=== PATIENT | female | born 1950 | race Hispanic/Latino ===

== ENCOUNTER 2017-04-27 15:24 | Inpatient (IN) | payer MEDICARE ==
--- NOTE | 2017-04-27 16:12 | ED PDOC ---
HPI: Psych/Substance Abuse Time Seen by Provider: 04/27/17 15:33 Chief Complaint (Nursing): Psychiatric Evaluation Chief Complaint (Provider): Psychiatric Evaluation History Per: Patient History/Exam Limitations: no limitations Onset/Duration Of Symptoms: Persistent (x1 month) Current Symptoms Are (Timing): Still Present Additional Complaint(s): 66 year old female with medical history of schizoaffective disorder, presents to the emergency department with a complaint of auditory hallucinations ongoing for 1 month, stating "they are out to get her". She denied any suicidal or homicidal ideation. Patient was seen at [facility] with full work-up earlier today for similar symptoms and advised to follow up with outpatient counseling upon discharge. PMD: none provided Past Medical History Reviewed: Historical Data, Nursing Documentation, Vital Signs Vital Signs: Last Vital Signs Temp 98.3 F 04/27/17 15:28 Pulse 82 04/27/17 15:28 Resp 18 04/27/17 15:28 BP 129/84 04/27/17 15:28 Pulse Ox 99 04/27/17 15:28 - Medical History PMH: Anxiety, Cardia Arrhythmia, COPD, Depression, Schizophrenia, Seizures ( EPILEPSY) Denies: Diabetes, Hepatitis, HIV, HTN, Chronic Kidney Disease, Sexually Transmitted Disease - Surgical History Surgical History: Appendectomy - Family History Family History: States: Unknown Family Hx - Social History Current smoker - smoking cessation education provided: Yes Alcohol: None Drugs: Denies - Immunization History Hx Tetanus Toxoid Vaccination: No Hx Influenza Vaccination: Yes Hx Pneumococcal Vaccination: No - Home Medications Home Medications: Ambulatory Orders Medication Instructions Recorded risperiDONE [RisperDAL Tab] 2 mg PO DAILY 04/17/17 Digoxin [Lanoxin] 0.25 mg PO DAILY@1800 #30 tab 04/22/17 Venlafaxine [Effexor XR] 150 mg PO DAILY #30 cer 04/22/17 risperiDONE [RisperDAL Tab] 3 mg PO HS #30 tab 04/22/17 DiphenhydrAMINE [Benadryl] 25 mg PO Q12 04/27/17 Phenytoin, Extended [Dilantin] 100 mg PO Q8 04/27/17 Venlafaxine [Effexor XR] 75 mg PO DAILY@1300 04/27/17 traZODone [Desyrel] 150 mg PO HS 04/27/17 - Allergies Allergies/Adverse Reactions: Allergies Allergy/AdvReac Type Severity Reaction Status Date / Time No Known Allergies Allergy Verified 04/27/17 06:54 Review of Systems ROS Statement: Except As Marked, All Systems Reviewed And Found Negative Neurological: Positive for: Other (auditory hallucination) Psych: Negative for: Suicidal ideation (or homicidal ideation) Physical Exam - Reviewed Nursing Documentation Reviewed: Yes Vital Signs Reviewed: Yes - Physical Exam Appears: Positive for: Non-toxic, No Acute Distress Head Exam: Positive for: ATRAUMATIC, NORMAL INSPECTION, NORMOCEPHALIC Skin: Positive for: Normal Color Eye Exam: Positive for: Normal appearance ENT: Positive for: Normal ENT Inspection Neck: Positive for: Normal Cardiovascular/Chest: Positive for: Chest Non Tender Respiratory: Positive for: Normal Breath Sounds. Negative for: Decreased Breath Sounds, Wheezing, Respiratory Distress Neurologic/Psych: Positive for: Alert (x3), Oriented, Mood/Affect (Paranoid ), Gait. Negative for: Motor/Sensory Deficits - ECG O2 Sat by Pulse Oximetry: 99 (RA) Pulse Ox Interpretation: Normal Medical Decision Making Medical Decision Making: Initial Impression: Crisis Evaluation Initial Plan: * Crisis evaluation Time: 1545 --Labs performed at [facility] reviewed by provider: no significant abnormalities. CXR in ER normal. EKG seen by FAUSTINO Hollis Scribe Attestation: Documented by Sandra Choi, acting as a scribe for La Frazier PA-C. Provider Scribe Attestation: All medical record entries made by the Scribe were at my direction and personally dictated by me. I have reviewed the chart and agree that the record accurately reflects my personal performance of the history, physical exam, medical decision making, and the department course for this patient. I have also personally directed, reviewed, and agree with the discharge instructions and disposition. Disposition - Clinical Impression Clinical Impression: Schizophrenia - Patient ED Disposition Is Patient to be Admitted: No Counseled Patient/Family Regarding: Diagnosis, Need For Followup - Disposition Disposition: Routine/Home Disposition Time: 18:21 Condition: GOOD - Pt Status Changed To: Hospital Disposition Of: Inpatient - Admit Certification Admit to Inpatient:: After my assessment, the patient will require hospitalization for at least two midnights. This is because of the severity of symptoms shown, intensity of services needed, and/or the medical risk in this patient being treated as an outpatient. - POA Present On Arrival: None
--- NOTE | 2017-04-27 18:18 | RAD ---
HISTORY: admission to psychiatric unit COMPARISON: No prior. FINDINGS: LUNGS: Hyperinflation/manifestations of COPD. Innumerable subcentimeter calcified granuloma. PLEURA: No significant pleural effusion identified, no pneumothorax apparent. CARDIOVASCULAR: No radiographic findings to suggest acute or significant cardiovascular disease. OSSEOUS STRUCTURES: No significant abnormalities. VISUALIZED UPPER ABDOMEN: Normal. OTHER FINDINGS: None. IMPRESSION: No active disease.
[2017-04-27 18:31] VITALS: O2SAT 98
[2017-04-27 18:51] VITALS: BMI 14.6
[2017-04-27] MEDS ORDERED: Bismuth Subsalicylate 262 mg/15 ml Sus (240 ml) PO PRN (20:09)
[2017-04-27] MEDS ORDERED: Magnesium Hydroxide Susp 30 ml UD PO PRN (20:09)
[2017-04-27] MEDS ORDERED: Alum-Mag Hydrox-Simethicone Susp (30 mL) PO PRN (20:09)
--- NOTE | 2017-04-27 20:25 | PCM.BM ---
Treatment Plan Problems - Problems identified on initial assessmt Auditory Hallucination Date Initiated: 04/27/17 Time Initiated: 20:24 Assessment reference: NA Status: Active Treatment assets and liabiliti Patient Assests: adapts well, cooperative, ADL independent, good support system , negotiates basic needs, good past tx response Patient Liabilities: medical problems - Milieu Protocol Maintain good personal hygiene: daily Encourage regular showers, daily Remind patient to perform daily oral care, other Assist patient to perform ADL's (prn) Conduct patient checks and document Observation sheet: Q15 minutes Maintain personal safety: every shift Educate patient to report safety concerns to staff, every shift Monitor environment for contraband/sharps Medication safety: Monitor for expected outcome, potential side effects: every shift, Assess barriers to learning: every shift, Assess readiness for medication education: every shift
[2017-04-27] MEDS ORDERED: Digoxin 250 mcg (0.25 mg) Tab PO ONE (21:28)
[2017-04-28 07:13] LABS: IRON 131 ug/dL (37-170)
[2017-04-28 07:24] LABS: % IRON SATURATION 50 % (20-55); TOTAL IRON BINDING CAPACITY 262 ug/dL (250-450)
[2017-04-28 08:13] LABS: T4 7.13 ug/dl (5.5-11.0)
[2017-04-28] MEDS: Venlafaxine 150 mg ER Cap PO SCH (09:06)
--- NOTE | 2017-04-28 11:04 | CARD ---
APPROVED REPORT EKG Measurement Heart [id number] <Conclusion> Sinus tachycardia with premature atrial complexes and premature ventricular complexes or fusion complexes Otherwise normal ECG
[2017-04-28] MEDS: Venlafaxine 75 mg ER Cap PO SCH (13:13)
[2017-04-28 16:44] LABS: FOLATE 19.7 ng/mL
[2017-04-28] MEDS: Digoxin 250 mcg (0.25 mg) Tab PO SCH (17:14)
--- NOTE | 2017-04-28 17:18 | PCM.PSYCH ---
Initial Psychiatric Evaluation - Initial Psychiatric Evaluation Chief Complaint (in patient's own words): i was home these people are trying to get me Patient's Reaction to Hospitalization: pt presented er complaining of anxiety hearing voices, feeling like people are out to get me. pt reportedly was at home was seen earlier in day at [facility] for similar complaints. pt reports when gets nervous has trouble with remembering to take medication. History of Present Illness and Precipitating Events: history of schizoaffective disorder with delusions hx of intermittent adherence at home. previously treated in the community. Current Medications: Active Medications Generic Name Dose Route Start Last Admin Trade Name Freq PRN Reason Stop Dose Admin Acetaminophen 650 mg 04/27/17 20:09 Tylenol 325mg Tab PO Q4 PRN Pain, moderate (4-7) Al Hydrox/Mg Hydrox/Simethicone 30 ml 04/27/17 20:09 Maalox Plus 30 Ml PO Q4 PRN Dyspepsia Bismuth Subsalicylate 524 mg 04/27/17 20:09 Pepto-Bismol PO Q4 PRN Diarrhea Digoxin 0.25 mg 04/28/17 18:00 Lanoxin PO DAILY@1800 MARTINEZ Diphenhydramine HCl 25 mg 04/27/17 21:00 04/28/17 09:05 Benadryl PO 25 mg Q12 MARTINEZ Administration Lorazepam 0.5 mg 04/27/17 20:09 Ativan PO 05/11/17 20:10 HS PRN Insomnia Lorazepam 0.5 mg 04/27/17 20:09 04/27/17 23:34 Ativan PO 05/11/17 20:10 0.5 mg Q6 PRN Administration Anixety/Agitation Magnesium Hydroxide 30 ml 04/27/17 20:09 Milk Of Magnesia PO HS PRN Constipation Phenytoin Sodium 100 mg 04/28/17 01:00 04/28/17 09:06 Dilantin PO 100 mg Q8 MARTINEZ Administration Risperidone 2 mg 04/28/17 09:00 04/28/17 09:06 Risperdal Tab PO 2 mg QAM MARTINEZ Administration Risperidone 3 mg 04/28/17 22:00 Risperdal Tab PO HS MARTINEZ Trazodone HCl 150 mg 04/27/17 22:00 04/27/17 21:27 Desyrel PO 150 mg HS MARTINEZ Administration Venlafaxine HCl 75 mg 04/28/17 13:00 04/28/17 13:13 Effexor Xr PO 75 mg DAILY@1300 MARTINEZ Administration Venlafaxine HCl 150 mg 04/28/17 09:00 04/28/17 09:06 Effexor Xr PO 150 mg DAILY MARTINEZ Administration Past Psychiatric History - Past Psychiatric History Prior Professional Help: past [facility] History of Abuse: denies History of ETOH/Drug Use: denies History of Family Illness: denies Pertinent Medical Hx (Current Medical&Sleep Prob, Allergies): Allergies Allergy/AdvReac Type Severity Reaction Status Date / Time No Known Allergies Allergy Verified 04/27/17 06:54 risperiDONE [RisperDAL Tab] 2 mg PO DAILY 04/17/17 Digoxin [Lanoxin] 0.25 mg PO DAILY@1800 #30 tab 04/22/17 Venlafaxine [Effexor XR] 150 mg PO DAILY #30 cer 04/22/17 risperiDONE [RisperDAL Tab] 3 mg PO HS #30 tab 04/22/17 DiphenhydrAMINE [Benadryl] 25 mg PO Q12 04/27/17 Phenytoin, Extended [Dilantin] 100 mg PO Q8 04/27/17 Risperidone [Risperdal] 2 mg PO QAM 04/27/17 Venlafaxine [Effexor XR] 75 mg PO DAILY@1300 04/27/17 traZODone [Desyrel] 150 mg PO HS 04/27/17 Review of Systems - Psychiatric Psychiatric: Abnormal Sleep Pattern, Anxiety, Paranoia Mental Status Examination - Personal Presentation Personal Presentation: Looks stated age - Affect Affect: Constricted - Motor Activity Motor Activity: Psychomotor Retardation - Reliability in Providing Information Reliability in Providing Information: Fair - Mood Mood: Depressed, Anxious - Formal Thought Process Formal Thought Process: Delusions, Paranoia - Hallucinations/Delusions Hallucinations: Visual, Auditory - Obsessions/Compulsions Obsessions: No Compulsions: No - Cognitive Functions Orientation: Person, Place, Situation Sensorium: Alert Attention/Concentration: Easily distracted Judgement: Imparied, as evidence by: Other - Risk Risk: Suicidal - Strength & Assets Inventory Strength & Assets Inventory: Cooperative DSM 5 DX - DSM 5 DSM 5 Diagnosis: schizoaffective disorder bipolar type ?depressed - Recommended/Plan of Treatment Treatment Recommendations and Plan of Treatment: inpt adm per attending vital signs and clinical observation per protocol and per status hospitalist consult restart meds per home prns per unit protocol falls precautions discharge planning in progress Projected ELOS: 5-7 days Prognosis: guarded Discharge Plan and Discharge Criteria: safety - Smoking Cessation Smoking Cessation Initiated: No Reason for not providing: pt defers
[2017-04-29] MEDS: Venlafaxine 150 mg ER Cap PO SCH (08:49)
[2017-04-29] MEDS: Venlafaxine 75 mg ER Cap PO SCH (12:55)
--- NOTE | 2017-04-29 16:04 | PCM.PYCHPN ---
Psychiatric Progress Note - Psychiatric Progress Note Patient seen today, length of contact: chart reviewed case discussed wt Patient Chief Complaint: feeling less nervous pacing at times reports episodic shaking, staff report rx adherent seen more visibly on unit. denies side effects of medication Problems Identified/Issues Discussed: alteration in mood alteration in cognition alteration in self care Medical Problems: per chart Diagnostic Results: per chart DSM 5 Symptoms Update: alteration in cognition alteration in mood alteration in self care Medication Change: No Medical Record Reviewed: Yes Consults ordered or reviewed: pt being followed by hospitalist Mental Status Examination - Cognitive Function Orientation: Person, Place, Situation Association: Loose Fund of Knowledge: Poor Decription of patient's judgement and insights: impaired - Mood Mood: Depressed, Anxious - Affect Affect: Constricted - Formal Thought Process Formal Thought Process: Delusions, Paranoia - Homicidal Ideation Homicidal Ideation: No Goal/Treatment Plan - Goal/Treatment Plan Need for Continued Stay: Remain at risks for inpatient hospitalization, Failed transitioning Progress Toward Problem(s) and Goals/Treatment Plan: inpt milieu vital signs and clinical observation per protocol and per status pt being folled by hspt being followed by hospitalist restart meds per home prns per unit protocol falls precautions staff obtained collateral information form son discharge planning in progress Estimated Date of D/C: 05/03/17 - Smoking Cessation Smoking Cessation Initiated: No Reason for not providing: pt deferred
[2017-04-29] MEDS: Digoxin 250 mcg (0.25 mg) Tab PO SCH (17:43)
[2017-04-30] MEDS: Venlafaxine 150 mg ER Cap PO SCH (09:28)
[2017-04-30] MEDS: Venlafaxine 75 mg ER Cap PO SCH (14:32)
[2017-04-30] MEDS: Digoxin 250 mcg (0.25 mg) Tab PO SCH (17:45)
[2017-05-01] MEDS: Venlafaxine 150 mg ER Cap PO SCH (08:26)
[2017-05-01] MEDS: Venlafaxine 75 mg ER Cap PO SCH (14:24)
--- NOTE | 2017-05-01 15:31 | PCM.PYCHPN ---
Psychiatric Progress Note - Psychiatric Progress Note Patient seen today, length of contact: chart reviewed case discussed wt Patient Chief Complaint: pt is admitted because of paranoid delusions that people are following her.pt is less delusional and less anxious today Medication Change: No Medical Record Reviewed: Yes Mental Status Examination - Cognitive Function Orientation: Person, Place, Situation Association: Loose Fund of Knowledge: Poor - Mood Mood: Depressed, Anxious - Affect Affect: Constricted - Formal Thought Process Formal Thought Process: Delusions, Paranoia - Homicidal Ideation Homicidal Ideation: No Goal/Treatment Plan - Goal/Treatment Plan Need for Continued Stay: Remain at risks for inpatient hospitalization, Failed transitioning Progress Toward Problem(s) and Goals/Treatment Plan: will continue to titrate risperdal and effexor to stabilize the pt and engage pt in therapy. Estimated Date of D/C: 05/03/17
[2017-05-01] MEDS: Digoxin 250 mcg (0.25 mg) Tab PO SCH (18:39)
[2017-05-02] MEDS: Venlafaxine 150 mg ER Cap PO SCH (08:06)
[2017-05-02] MEDS: Digoxin 250 mcg (0.25 mg) Tab PO SCH (11:27)
--- NOTE | 2017-05-02 12:12 | CP.PCM.CON ---
History of Present Illness - History of Present Illness History of Present Illness: reason for consult: per hospital protocol History of present illness: 66-year-old female with past medical history of seizures and cardiac arrhythmia likely atrial fibrillation on digoxin, is admitted to psych for depression and auditory hallucinations. Patient states this has improved over the time she has been admitted. She has no other complaints at this time. She is hemodynamically stable and in no acute distress. Review of systems: Per HPI all other systems reviewed are negative by me. Past Patient History - Infectious Disease Hx of Infectious Diseases: None - Tetanus Immunizations Tetanus Immunization: Unknown - Past Medical History & Family History Past Medical History?: Yes - Past Social History Alcohol: None Drugs: Denies - CARDIAC Hx Cardia Arrhythmia: Yes - PULMONARY Hx Chronic Obstructive Pulmonary Disease (COPD): Yes - NEUROLOGICAL Hx Seizures: Yes (EPILEPSY) - HEENT Hx Cataracts: Yes - RENAL Hx Chronic Kidney Disease: No - ENDOCRINE/METABOLIC Hx Endocrine Disorders: No - HEMATOLOGICAL/ONCOLOGICAL Hx Human Immunodeficiency Virus (HIV): No - INTEGUMENTARY Hx Dermatological Problems: No - MUSCULOSKELETAL/RHEUMATOLOGICAL Hx Falls: No - GASTROINTESTINAL Hx Bowel Surgery: Yes (appendectomy, bowel obstruction) - GENITOURINARY/GYNECOLOGICAL Hx Sexually Transmitted Disorders: No - PSYCHIATRIC Hx Depression: Yes Hx Schizophrenia: Yes Hx Substance Use: No - SURGICAL HISTORY Hx Appendectomy: Yes - ANESTHESIA Hx Anesthesia: Yes Hx Anesthesia Reactions: No Meds Allergies/Adverse Reactions: Allergies Allergy/AdvReac Type Severity Reaction Status Date / Time No Known Allergies Allergy Verified 04/27/17 06:54 - Medications Medications: Current Medications Acetaminophen (Tylenol 325mg Tab) 650 mg PO Q4 PRN PRN Reason: Pain, moderate (4-7) Al Hydrox/Mg Hydrox/Simethicone (Maalox Plus 30 Ml) 30 ml PO Q4 PRN PRN Reason: Dyspepsia Bismuth Subsalicylate (Pepto-Bismol) 524 mg PO Q4 PRN PRN Reason: Diarrhea Digoxin (Lanoxin) 0.25 mg PO DAILY [facility] Last Admin: 05/02/17 11:27 Dose: 0.25 mg Diphenhydramine HCl (Benadryl) 25 mg PO Q12 MARTINEZ Last Admin: 05/02/17 08:06 Dose: 25 mg Lorazepam (Ativan) 0.5 mg PO HS PRN PRN Reason: Insomnia Stop: 05/11/17 20:10 Lorazepam (Ativan) 0.5 mg PO Q6 PRN PRN Reason: Anixety/Agitation Stop: 05/11/17 20:10 Last Admin: 04/27/17 23:34 Dose: 0.5 mg Magnesium Hydroxide (Milk Of Magnesia) 30 ml PO HS PRN PRN Reason: Constipation Phenytoin Sodium (Dilantin) 100 mg PO Q8@0600,1400,2200 [facility] Last Admin: 05/02/17 06:03 Dose: 100 mg Risperidone (Risperdal Tab) 2 mg PO QAM [facility] Last Admin: 05/02/17 08:06 Dose: 2 mg Risperidone (Risperdal Tab) 3 mg PO HS [facility] Last Admin: 05/01/17 21:08 Dose: 3 mg Trazodone HCl (Desyrel) 150 mg PO HS [facility] Last Admin: 05/01/17 21:08 Dose: 150 mg Venlafaxine HCl (Effexor Xr) 75 mg PO DAILY@1300 [facility] Last Admin: 05/01/17 14:24 Dose: 75 mg Venlafaxine HCl (Effexor Xr) 150 mg PO DAILY [facility] Last Admin: 05/02/17 08:06 Dose: 150 mg Physical Exam - Constitutional Additional comments: Physical exam: Constitutional- cooperative, awake, alert Head- NCAT, PERRL Eye- PERRL, EOMI ENT- normal exam, MMM. Neck- normal inspection, supple, no JVD Respiratory- CTAB, no wheezes rales rhonchi Cardiovascular- RRR, +S1, +S2 no MRG GI/Abdominal- normal bowel sounds, soft, no mass, no hsm Skin- warm, dry Extremities Exam- normal capillary refill, normal inspection Neurological Exam- alert, awake, oriented Psych- normal mood, normal affect Results - Vital Signs Recent Vital Signs: Last Vital Signs Temp 97.3 F L 05/02/17 06:00 Pulse 69 05/02/17 06:00 Resp 18 05/02/17 06:00 BP 105/66 05/02/17 06:00 Pulse Ox 98 04/27/17 18:27 Assessment & Plan - Assessment and Plan (Free Text) Plan: 66-year-old female with past medical history of seizures and cardiac arrhythmia likely atrial fibrillation on digoxin, is admitted to psych for depression and auditory hallucinations. Patient states this has improved over the time she has been admitted. She has no other complaints at this time. She is hemodynamically stable and in no acute distress. depression and auditory hallucinations management per psych
[2017-05-02] MEDS: Venlafaxine 75 mg ER Cap PO SCH (13:33)
[2017-05-03] MEDS: Digoxin 250 mcg (0.25 mg) Tab PO SCH (08:37)
[2017-05-03] MEDS: Venlafaxine 150 mg ER Cap PO SCH (08:38)
[2017-05-03 08:39] VITALS: PULSE 68
[2017-05-03] MEDS: Venlafaxine 75 mg ER Cap PO SCH (13:34)
[2017-05-03 15:54] VITALS: BP 94/59; PULSE 88; RESP 20; TEMP 98.1
--- NOTE | 2017-05-03 16:53 | PCM.PYCHDC ---
Mental Status Examination - Mental Status Examination Orientation: Person, Place, Situation Memory: Intact Mood: Neutral Affect: Broad Speech: Appropriate Attention: WNL Concentration: WNL Association: WNL Fund of Knowledge: WNL Formal Thought Process: Circumstantial Description of patient's judgement and insight: FAIR INSIGHT AND JUDGEMENT Psychotic Thoughts and Behaviors: pt denied perceptual disturbances, non elicited Suicidal Ideation: No Current Homicidal Ideation?: No Discharge Summary - Discharge Note Reason for Hospitalization: pt presented er complaining of anxiety hearing voices, feeling like people are out to get me. pt reportedly was at home was seen earlier in day at [facility] for similar complaints. pt reports when gets nervous has trouble with remembering to take medication. Consultations:: List each consultation separately and include: 1. Reason for request. 2. Findings. 3. Follow-up Summary of Hospital Course include:: 1. Description of specific treatment plan utilized for patients during their course of treatmen. 2. Summarize the time- course for resolution of acute symptoms and/or regressed behaviors. 3. Describe issues identified and worked on during hospitalization. 4. Describe medication utilized. 5. Describe medical problems identified and treated. 6. Reassessment of suicide risk Summary of Hospital Course: pt has been mangaed by Henrique Alicea, placed on risperidone and effexor on discharge pt mental status was stable, denied suicidal or homicidal ideations denied perceptual disturbances no reported side effects of medications follow up at outpatient arranged by social work assistant - Final Diagnosis (DSM 5) Condition upon Discharge: GOOD DSM 5: schizoaffective disorder Disposition: HOME/ ROUTINE Prescriptions/Medication Reconciliation: risperiDONE [RisperDAL Tab] 2 mg PO QAM 15 Days #15 tab risperiDONE [RisperDAL Tab] 3 mg PO HS 15 Days #15 tab traZODone [Desyrel] 150 mg PO HS 15 Days #45 tab Venlafaxine [Effexor XR] 150 mg PO DAILY 15 Days #15 cer Venlafaxine [Effexor XR] 75 mg PO DAILY@1300 15 Days #15 cer - Antipsychotic Medications Pt discharged on 2 or more routine antipsychotic medications: No
== END 2017-05-03 16:00 | disposition home or self-care (01) | DRG 885 ==
LOC: H.ER 15:24 → H.ERHOLD 17:16 → H.STEP 18:47
PROVIDERS: ADMIT Psychiatry & Neurology Psychiatry; ATTEND Psychiatry & Neurology Psychiatry
PROC: GZHZZZZ Group Psychotherapy (ICD-10-PCS; principal; 2017-04-28)
PROC: GZ51ZZZ Individual Psychotherapy, Behavioral (ICD-10-PCS; 2017-04-28)
DX: F25.0 Schizoaffective disorder, bipolar type (principal); I48.91 Unspecified atrial fibrillation; J44.9 Chronic obstructive pulmonary disease, unspecified; G40.909 Epilepsy, unspecified, not intractable, without status epilepticus; F17.200 Nicotine dependence, unspecified, uncomplicated; F41.9 Anxiety disorder, unspecified; F32.9 Major depressive disorder, single episode, unspecified; Z90.49 Acquired absence of other specified parts of digestive tract; H26.9 Unspecified cataract

== ENCOUNTER 2018-06-08 01:45 | Inpatient (IN) | payer MEDICARE ==
[2018-06-08 01:45] VITALS: BMI 12.7
[2018-06-08 01:55] VITALS: O2SAT 98
--- NOTE | 2018-06-08 02:01 | ED PDOC ---
Psych Transfer Clearance - Clearance Statement Clearance Statement: Reviewed vital signs, lab results and transfer papers. Patient clinically stable for psychiatric admission.
[2018-06-08] MEDS ORDERED: Magnesium Hydroxide Susp 30 ml UD PO PRN (02:14)
[2018-06-08] MEDS ORDERED: Alum-Mag Hydrox-Simethicone Susp (30 mL) PO PRN (02:14)
[2018-06-08] MEDS ORDERED: Bismuth Subsalicylate 262 mg/15 ml Sus (240 ml) PO PRN (02:14)
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
[2018-06-08 06:44] LABS: MEAN CELL VOLUME 101.4 fl (81.0-99.0); MEAN CORPUSCULAR HEMOGLOBIN 34.2 pg (27.0-31.0); MEAN CORPUSCULAR HGB CONC 33.7 g/dL (33.0-37.0); RBC 3.79 Mil/uL (3.80-5.20); RED CELL DISTRIBUTION WIDTH 13.9 % (11.5-14.5)
[2018-06-08 06:55] LABS: HDL CHOLESTEROL 84 MG/DL (30-70)
[2018-06-08 06:57] LABS: ALB/GLOB RATIO 1.5 (1.0-2.1); ALBUMIN 4.6 g/dL (3.5-5.0); ALT/SGPT 45 U/L (9-52); AST/SGOT 40 U/L (14-36); BLOOD UREA NITROGEN 9 mg/dl (7-17); GFR NON-AFRICAN AMERICAN > 60
[2018-06-08 07:06] LABS: LDL CHOLESTEROL 110 mg/dL (0-129)
[2018-06-08 07:30] LABS: FERRITIN 37.5 ng/Ml (11.1-264.0)
[2018-06-08 08:04] LABS: IRON 123 ug/dL (37-170)
[2018-06-08 08:13] LABS: % IRON SATURATION 47 % (20-55); TOTAL IRON BINDING CAPACITY 261 ug/dL (250-450)
--- NOTE | 2018-06-08 10:38 | PCM.PSYCH ---
Initial Psychiatric Evaluation - Initial Psychiatric Evaluation Type of Admission: Voluntary Legal Status: Capacity Chief Complaint (in patient's own words): "I'm hearing the voices again." Patient's Reaction to Hospitalization: HPI: 67 yo female w/ h/o schizoaffective disorder, presents w/ worsening depression, increased auditory hallucinations, CAH telling her simple commands such as "stay in bed," poor appetite and weight loss, and poor sleep. She denies acute VH/paranoia/SI/HI. PPHx: History of multiple past psychiatric admissions; last hospitalized in [facility] in April 2017; current outpatient treatment with Dr. Higgins PMHx: CAD, Seizure Disorder , Osteoporosis ALL: NKDA SHx: Lives w/ her son, no drugs/etoh; smokes 1ppd; completed 11th grade; no legal history, umemployed, on SSI Current Medications: Active Medications Generic Name Dose Route Start Last Admin Trade Name Freq PRN Reason Stop Dose Admin Acetaminophen 650 mg 06/08/18 02:14 Tylenol 325mg Tab PO Q4 PRN Pain, moderate (4-7) Al Hydrox/Mg Hydrox/Simethicone 30 ml 06/08/18 02:14 Maalox Plus 30 Ml PO Q4 PRN Dyspepsia Bismuth Subsalicylate 524 mg 06/08/18 02:14 Pepto-Bismol PO Q4 PRN Diarrhea Lorazepam 0.5 mg 06/08/18 02:14 Ativan PO 06/22/18 02:15 HS PRN Insomnia Lorazepam 0.5 mg 06/08/18 02:14 Ativan PO 06/22/18 02:15 Q6 PRN Anixety/Agitation Magnesium Hydroxide 30 ml 06/08/18 02:14 Milk Of Magnesia PO HS PRN Constipation Past Psychiatric History - Past Psychiatric History Previous Treatment History: Inpatient Pertinent Medical Hx (Current Medical&Sleep Prob, Allergies): Allergies Allergy/AdvReac Type Severity Reaction Status Date / Time No Known Allergies Allergy Verified 05/13/18 10:04 DiphenhydrAMINE [Benadryl] 25 mg PO Q12 04/27/17 Phenytoin, Extended [Dilantin] 100 mg PO Q8 04/27/17 Venlafaxine [Effexor XR] 75 mg PO DAILY@1300 15 Days #15 cer 05/03/17 Venlafaxine [Effexor XR] 150 mg PO DAILY 15 Days #15 cer 05/03/17 risperiDONE [RisperDAL Tab] 3 mg PO HS 15 Days #15 tab 05/03/17 Digoxin [Lanoxin] 125 mcg PO DAILY 06/08/18 Verapamil ER [Calan SR Tab] 120 mg PO DAILY 06/08/18 risperiDONE [RisperDAL Tab] 1 mg PO QAM 06/08/18 traZODone [Desyrel] 150 mg PO HS 06/08/18 Review of Systems - Psychiatric Psychiatric: As Per HPI, Abnormal Sleep Pattern, Anhedonia, Anxiety, Auditory Hallucinations, Change in Appetite, Depression, Difficulty Concentrating, Hallucinations, Hopelessness, Mood Swings Mental Status Examination - Personal Presentation Personal Presentation: Looks older than stated age - Affect Affect: Constricted, Depressed - Motor Activity Motor Activity: Calm - Reliability in Providing Information Reliability in Providing Information: Fair - Speech Speech: Coherent - Mood Mood: Depressed - Formal Thought Process Formal Thought Process: Hallucinations - Hallucinations/Delusions Hallucinations: Auditory - Obsessions/Compulsions Obsessions: No Compulsions: No - Cognitive Functions Orientation: Person, Place, Situation, Time Sensorium: Alert Judgement: Intact, as evidence by: Insight regarding need for hospitalization Memory: Recent intact, as evidence by: Ability to recall events of the day - Risk Risk: Diminished functioning - Strength & Assets Inventory Strength & Assets Inventory: Family support, Cooperative DSM 5 DX - DSM 5 DSM 5 Diagnosis: Schizoaffective Disorder - Recommended/Plan of Treatment Treatment Recommendations and Plan of Treatment: Schizoaffective Disorder -Admit to psychiatry unit -Individual and group therapy -Obtain collateral history -Continue Trazodone and Effexor -Modify Risperdal -Medicine consult -Dietitian referral -Nicotine patch -Disposition planning Projected ELOS: 5-10 days Discharge Plan and Discharge Criteria: Discharge when patient is psychiatrically stable - Smoking Cessation Smoking Cessation Initiated: Yes
[2018-06-08] MEDS ORDERED: Verapamil 120 mg ER Tab PO SCH (10:45)
[2018-06-08] MEDS: Multivitamin With Minerals Tab PO SCH (11:23)
[2018-06-08] MEDS: Digoxin 125 mcg (0.125 mg) Tab PO SCH (11:23)
[2018-06-08] MEDS: Venlafaxine 75 mg ER Cap PO SCH (11:25)
[2018-06-08] MEDS: Venlafaxine 150 mg ER Cap PO SCH (11:25)
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
[2018-06-08 12:23] LABS: FOLATE > 20.0 ng/mL
[2018-06-08] MEDS: VERAPAMIL 120 MG PO SCH (21:24)
[2018-06-09] MEDS: Venlafaxine 75 mg ER Cap PO SCH (08:33)
[2018-06-09] MEDS: Multivitamin With Minerals Tab PO SCH (08:34)
[2018-06-09] MEDS: Digoxin 125 mcg (0.125 mg) Tab PO SCH (08:34)
[2018-06-09] MEDS: Venlafaxine 150 mg ER Cap PO SCH (08:37)
--- NOTE | 2018-06-09 09:15 | PCM.PYCHPN ---
Psychiatric Progress Note - Psychiatric Progress Note Patient seen today, length of contact: Pt evaluated, case discussed w/ team, chart reviewed Patient Chief Complaint: "I'm hearing the voices again." Problems Identified/Issues Discussed: Patient reports that she continues to feel depressed and anxious. She reports that the AH are less frequent, but still upsetting to her as they tell her that they are going to shoot her. He denies acute VH/SI/HI. She denies adverse effects to the increased dose of Risperdal. No other medical complaints of adverse effects reported. Medication Change: No Medical Record Reviewed: Yes Consults ordered or reviewed: Medicine consult Mental Status Examination - Cognitive Function Orientation: Person, Place, Situation, Time Memory: Intact Decription of patient's judgement and insights: Fair I/J - Mood Mood: Depressed, Anxious - Affect Affect: Constricted, Depressed - Formal Thought Process Formal Thought Process: Hallucinations Psychotic Thoughts and Behaviors: +AH - Suicidal Ideation Suicidal Ideation: No - Homicidal Ideation Homicidal Ideation: No Goal/Treatment Plan - Goal/Treatment Plan Need for Continued Stay: Remain at risks for inpatient hospitalization, Discharge may exacerbated symptoms Progress Toward Problem(s) and Goals/Treatment Plan: Schizoaffective Disorder -Individual and group therapy -Collateral history obtained from outpatient clinic (see SW notes) -Continue Trazodone and Effexor -Continue Risperdal -Medicine consult -Dietitian referral -Nicotine patch -Disposition planning - Smoking Cessation Smoking Cessation Initiated: Yes
[2018-06-09] MEDS: VERAPAMIL 120 MG PO SCH (21:25)
[2018-06-10] MEDS: Venlafaxine 150 mg ER Cap PO SCH (08:56)
[2018-06-10] MEDS: Multivitamin With Minerals Tab PO SCH (08:57)
[2018-06-10] MEDS: Digoxin 125 mcg (0.125 mg) Tab PO SCH (08:57)
[2018-06-10] MEDS: Venlafaxine 75 mg ER Cap PO SCH (08:58)
--- NOTE | 2018-06-10 09:54 | PCM.PYCHPN ---
Psychiatric Progress Note - Psychiatric Progress Note Patient seen today, length of contact: Pt evaluated, case discussed w/ team, chart reviewed Patient Chief Complaint: "I'm hearing the voices again." Problems Identified/Issues Discussed: Patient reports that she continues to feel depressed. She continues to hear AH telling her that they (the voices) are coming to the hospital. She denies acute CAH. She denies acute VH/SI/HI. No adverse effects to medications reported. She does not want to increase Risperdal at this time as she feels the voices are less frequent. She is not agreeable to treatment with long acting injectables. Medication Change: No Medical Record Reviewed: Yes Consults ordered or reviewed: Medicine consult Mental Status Examination - Cognitive Function Orientation: Person, Place, Situation, Time Memory: Intact Decription of patient's judgement and insights: Fair I/J - Mood Mood: Depressed, Anxious - Affect Affect: Constricted, Depressed - Formal Thought Process Formal Thought Process: Hallucinations Psychotic Thoughts and Behaviors: +AH - Suicidal Ideation Suicidal Ideation: No - Homicidal Ideation Homicidal Ideation: No Goal/Treatment Plan - Goal/Treatment Plan Need for Continued Stay: Remain at risks for inpatient hospitalization, Discharge may exacerbated symptoms Progress Toward Problem(s) and Goals/Treatment Plan: Schizoaffective Disorder -Individual and group therapy -Continue Trazodone and Effexor -Continue Risperdal -Medicine consult -Dietitian referral -Nicotine patch -Disposition planning
[2018-06-10] MEDS: VERAPAMIL 120 MG PO SCH (21:15)
[2018-06-11] MEDS: Digoxin 125 mcg (0.125 mg) Tab PO SCH (08:43)
[2018-06-11] MEDS: Venlafaxine 150 mg ER Cap PO SCH (08:44)
[2018-06-11] MEDS: Venlafaxine 75 mg ER Cap PO SCH (08:44)
[2018-06-11] MEDS ORDERED: ALENDRONATE 70 MG TAB PO SCH (09:00)
--- NOTE | 2018-06-11 12:08 | PCM.PYCHPN ---
Psychiatric Progress Note - Psychiatric Progress Note Patient seen today, length of contact: Pt evaluated, case discussed w/ team, chart reviewed Patient Chief Complaint: was feeling depressed and hearing voices-now reports somewhat less depressed voices are less they are commentary in nature. staff report pt rx adherent and is seen out of room interacting with peers. Problems Identified/Issues Discussed: alteration in mood alteration in self care alteration in cognition Medical Problems: per chart Diagnostic Results: per psychiatry ] per medicine per nursing per social work per recreational therapy DSM 5 Symptoms Update: alteration in mood alteration in cognition alteration in self care Medication Change: No Medical Record Reviewed: Yes Consults ordered or reviewed: pt being followed by medical team Mental Status Examination - Cognitive Function Orientation: Person, Place, Situation, Time Memory: Intact - Mood Mood: Depressed, Anxious - Affect Affect: Constricted, Depressed - Formal Thought Process Formal Thought Process: Hallucinations - Suicidal Ideation Suicidal Ideation: No - Homicidal Ideation Homicidal Ideation: No Goal/Treatment Plan - Goal/Treatment Plan Need for Continued Stay: Remain at risks for inpatient hospitalization, Discharge may exacerbated symptoms Progress Toward Problem(s) and Goals/Treatment Plan: inpt milieu prns per clinical status adjust meds per clinical staus discharge planning in progress Estimated Date of D/C: 06/14/18 - Smoking Cessation Smoking Cessation Initiated: No Reason for not providing: pt defers
[2018-06-11] MEDS: Multivitamin With Minerals Tab PO SCH (12:58)
[2018-06-11] MEDS: VERAPAMIL 120 MG PO SCH (21:19)
[2018-06-12] MEDS: Multivitamin With Minerals Tab PO SCH (08:33)
[2018-06-12] MEDS: Digoxin 125 mcg (0.125 mg) Tab PO SCH (08:33)
[2018-06-12] MEDS: Venlafaxine 150 mg ER Cap PO SCH (08:33)
[2018-06-12] MEDS: Venlafaxine 75 mg ER Cap PO SCH (08:33)
--- NOTE | 2018-06-12 16:36 | PCM.PYCHPN ---
Psychiatric Progress Note - Psychiatric Progress Note Patient seen today, length of contact: Pt evaluated, case discussed w/ team, chart reviewed Patient Chief Complaint: feeling less depressed, voices are "all but a whisper", staff report pt is rx adherent, seen about in unit. pt denies notable side effects of medications.l Problems Identified/Issues Discussed: alteration in mood alteration in self care alteration in cognition Medical Problems: per chart Diagnostic Results: per psychiatry ] per medicine per nursing per social work per recreational therapy DSM 5 Symptoms Update: improving mood and psychotic symptoms-remains with lesser amount to commentary voice of unknown individual cannot differentiate male or female Medication Change: No Medical Record Reviewed: Yes Consults ordered or reviewed: pt being followed by medical team Mental Status Examination - Cognitive Function Orientation: Person, Place, Situation, Time Memory: Intact Attention: WNL Concentration: WNL Association: WNL Fund of Knowledge: WN Decription of patient's judgement and insights: somewhat impaired - Mood Mood: Depressed, Anxious - Affect Affect: Broad, Depressed Additional comments: less depressed as compared to 2-3 days ago - Formal Thought Process Formal Thought Process: Hallucinations - Suicidal Ideation Suicidal Ideation: No - Homicidal Ideation Homicidal Ideation: No Goal/Treatment Plan - Goal/Treatment Plan Need for Continued Stay: Remain at risks for inpatient hospitalization, Discharge may exacerbated symptoms Progress Toward Problem(s) and Goals/Treatment Plan: inpt milieu prns per clinical status adjust meds per clinical staus discharge planning in progress Estimated Date of D/C: 06/14/18 - Smoking Cessation Smoking Cessation Initiated: Yes
[2018-06-12] MEDS: VERAPAMIL 120 MG PO SCH (21:19)
[2018-06-13] MEDS: Digoxin 125 mcg (0.125 mg) Tab PO SCH (08:31)
[2018-06-13] MEDS: Multivitamin With Minerals Tab PO SCH (08:32)
[2018-06-13] MEDS: Venlafaxine 75 mg ER Cap PO SCH (08:33)
[2018-06-13] MEDS: Venlafaxine 150 mg ER Cap PO SCH (08:33)
--- NOTE | 2018-06-13 09:26 | PCM.PYCHPN ---
Psychiatric Progress Note - Psychiatric Progress Note Patient seen today, length of contact: Pt evaluated, case discussed w/ team, chart reviewed Patient Chief Complaint: "I'm hearing the voices again." Problems Identified/Issues Discussed: Patient continues to report AH, but states that they are less frequent. She reports that the voices are talking about her son. She denies CAH. No VH/SI/HI. She reports that she continues to feel depressed. She does not want to increase her medications at this time. We discussed possible titration of Risperdal tomorrow if the AH do not improve. She is not agreeable to treatment with long acting injectables. No adverse effects to medications reported. Medication Change: No Medical Record Reviewed: Yes Consults ordered or reviewed: Medicine consult Mental Status Examination - Cognitive Function Orientation: Person, Place, Situation, Time Memory: Intact Attention: WNL Concentration: WNL Association: WNL Fund of Knowledge: [facility] Decription of patient's judgement and insights: Fair I/J - Mood Mood: Depressed, Anxious - Affect Affect: Depressed - Formal Thought Process Formal Thought Process: Hallucinations Psychotic Thoughts and Behaviors: +Intermittent AH - Suicidal Ideation Suicidal Ideation: No - Homicidal Ideation Homicidal Ideation: No Goal/Treatment Plan - Goal/Treatment Plan Need for Continued Stay: Remain at risks for inpatient hospitalization, Discharge may exacerbated symptoms Progress Toward Problem(s) and Goals/Treatment Plan: Schizoaffective Disorder -Individual and group therapy -Continue Trazodone and Effexor -Continue Risperdal -Medicine consult -Dietitian referral -Nicotine patch -Disposition planning
[2018-06-13] MEDS: VERAPAMIL 120 MG PO SCH (21:04)
--- NOTE | 2018-06-14 08:07 | PCM.PYCHPN ---
Psychiatric Progress Note - Psychiatric Progress Note Patient seen today, length of contact: Pt evaluated, case discussed w/ team, chart reviewed Patient Chief Complaint: "I'm hearing the voices again." Problems Identified/Issues Discussed: Patient reports that the voices are getting worse and they are telling her that another patient's daugther is going to harm her. She is currently paranoid and anxious. We discussed continued titration of Risperdal. No current adverse effects reported. No VH/SI/HI. Medication Change: Yes (Increase Risperdal) Medical Record Reviewed: Yes Consults ordered or reviewed: Medicine consult Mental Status Examination - Cognitive Function Orientation: Person, Place, Situation, Time Memory: Intact Attention: WNL Concentration: WNL Association: WNL Fund of Knowledge: [facility] Decription of patient's judgement and insights: Fair I/J - Mood Mood: Depressed, Anxious - Affect Affect: Depressed - Formal Thought Process Formal Thought Process: Hallucinations, Paranoia Psychotic Thoughts and Behaviors: +Intermittent AH - Suicidal Ideation Suicidal Ideation: No - Homicidal Ideation Homicidal Ideation: No Goal/Treatment Plan - Goal/Treatment Plan Need for Continued Stay: Remain at risks for inpatient hospitalization, Discharge may exacerbated symptoms Progress Toward Problem(s) and Goals/Treatment Plan: Schizoaffective Disorder -Individual and group therapy -Continue Trazodone and Effexor -Increase Risperdal -Medicine consult -Dietitian referral -Nicotine patch -Disposition planning
[2018-06-14] MEDS: Digoxin 125 mcg (0.125 mg) Tab PO SCH (08:32)
[2018-06-14] MEDS: Multivitamin With Minerals Tab PO SCH (08:32)
[2018-06-14] MEDS: Venlafaxine 150 mg ER Cap PO SCH (08:32)
[2018-06-14] MEDS: Venlafaxine 75 mg ER Cap PO SCH (08:33)
[2018-06-14] MEDS: VERAPAMIL 120 MG PO SCH (21:14)
[2018-06-15] MEDS: Digoxin 125 mcg (0.125 mg) Tab PO SCH (08:04)
[2018-06-15] MEDS: Multivitamin With Minerals Tab PO SCH (08:05)
[2018-06-15] MEDS: Venlafaxine 75 mg ER Cap PO SCH (08:07)
[2018-06-15] MEDS: Venlafaxine 150 mg ER Cap PO SCH (08:07)
--- NOTE | 2018-06-15 09:30 | PCM.PYCHPN ---
Psychiatric Progress Note - Psychiatric Progress Note Patient seen today, length of contact: Pt evaluated, case discussed w/ team, chart reviewed Patient Chief Complaint: "I'm hearing the voices again." Problems Identified/Issues Discussed: Patient is acutely paranoid and afraid that someone is trying to harm her. She has active AH telling her that the voices will harm her. We discussed starting Risperdal Consta. She is afraid to be alone and has been requesting to stay near various staff members for safety. No current adverse effects reported. Medication Change: Yes (Start Risperdal Consta 50 mg IM ) Medical Record Reviewed: Yes Consults ordered or reviewed: Medicine consult Mental Status Examination - Cognitive Function Orientation: Person, Place, Situation, Time Memory: Intact Attention: WNL Concentration: WNL Association: WNL Fund of Knowledge: [facility] Decription of patient's judgement and insights: Fair I/J - Mood Mood: Depressed, Anxious - Affect Affect: Depressed - Formal Thought Process Formal Thought Process: Hallucinations, Paranoia Psychotic Thoughts and Behaviors: +AH - Suicidal Ideation Suicidal Ideation: No - Homicidal Ideation Homicidal Ideation: No Goal/Treatment Plan - Goal/Treatment Plan Need for Continued Stay: Remain at risks for inpatient hospitalization, Discharge may exacerbated symptoms Progress Toward Problem(s) and Goals/Treatment Plan: Schizoaffective Disorder -Individual and group therapy -Continue Trazodone and Effexor -Start Risperdal Consta 50 mg IM, continue PO Risperdal for 2 weeks -Medicine consult -Dietitian referral -Nicotine patch -Disposition planning Estimated Date of D/C: 06/20/18
--- NOTE | 2018-06-15 11:37 | PCM.BM ---
Treatment Plan Problems - Problems identified on initial assessmt Auditory Hallucinations Date Initiated: 06/08/18 Time Initiated: 02:39 Assessment reference: NA Status: Active Visual Hallucinations Date Initiated: 06/08/18 Time Initiated: 02:40 Assessment reference: NA Status: Active Treatment assets and liabiliti Patient Assests: adapts well, cooperative, ADL independent, good support system, negotiates basic needs, good past tx response Patient Liabilities: medical problems - Milieu Protocol Maintain good personal hygiene: daily Encourage regular showers, daily Remind patient to perform daily oral care, daily Assist patient to perform ADL's Conduct patient checks and document Observation sheet: Q15 minutes Maintain personal safety: every shift Educate patient to report safety concerns to staff, every shift Monitor environment for contraband/sharps Medication safety: Monitor for expected outcome, potential side effects: every s hift, Assess barriers to learning: every shift, Assess readiness for medication education: every shift Milieu Narrative: Schizoaffective Disorder -Individual and group therapy -Continue Trazodone and Effexor -Start Risperdal Consta 50 mg IM, continue PO Risperdal for 2 weeks -Medicine consult -Dietitian referral -Nicotine patch -Disposition planning Family Contact Family involvement: Family/SO is involved Family contact: Patient agrees to contact, Family has been contacted by patient, Telephone contact initiated by staff Family contact name: Binh - son & Kristyn - sister Family contacted how many times per week?: 2 Family contact comment: [phone] - Outside Agency [facility] involvment: Information-sharing Agency contact name: Dr. Gisela MD Agency contact number: [phone] - Goals for Treatment Patient goals for treatment: Pt will imporve overall mood. Pt will improve feeling less depressed and anxious. Pt will develop strategies to reduce sumptoms and improve coping skills. Pt will be comply with prescribed medications. Pt will attend clinical and activity groups. Pt will improve sleep pattern. Pt will report less auditory hallucinations. Discharge/Continuing Care - Education Needs Education Needs: Family Medication, Family Diagnosis/Disease Process, Family Coping Skills, Family Community resources, Family Activities of Daily Living, Family Nutrition, Family Health Practices/Safety, Family Personal Hygiene/Grooming, Family Aftercare Safety Plan, Patient Medication, Patient Diagnosis/Disease Process, Patient Coping Skills, Patient Community resources, Patient Activities of Daily Living, Patient Nutrition, Patient Health Practices/Safety, Patient Personal Hygiene/Grooming, Patient Aftercare Safety Plan - Discharge Discharge Criteria: Tolerates medication w/o severe side effects, Normal sleep pattern, Ability to care for self, Reduction of target symptoms, Other (Decreased auditory hallucinations) Discharge to:: Home, With Family - Additional Comments 06/08/18 13:11 Pt seen and discussed in team meeting. Reason for hospitalization reviewed and discussed. Pt reported worsening auditory hallucinations in the context of medication adjustment. Pt reported hearing voices telling her to "take care of my son" and "watch him." Pt reported she last experienced auditory hallucinations this morning. Pt reported the voices were telling her "stay in your room." Pt was observed to be at the door entrance of her bedroom most of the morning. Pt reported feeling depressed. Pt reported that her mother in February 2018. Pt denied SI and HI. Pt denied VH. Pt denied any paranoia. Pt reported poor sleep and appetite. Pt reported weight loss, but unable to state how much. Pt appears to be thin and under weight. Pt's social and medical issues reviewed and discussed. Pt's medications reviewed and discussed. Pt reported following up with Dr. Gisela MD at [facility]. Tx plan reviewed and discussed. Pt signed consent form for [facility] and sister, Kristyn ([phone]). Sw to continue to follow case. - Treatment Team Participation Patient/Family/SO Statement: Schizoaffective Disorder -Individual and group therapy -Continue Trazodone and Effexor -Start Risperdal Consta 50 mg IM, continue PO Risperdal for 2 weeks -Medicine consult -Dietitian referral -Nicotine patch -Disposition planning Discussed with Family/SO: No Was Patient/Family/SO present at Treatment Team Meeting: Yes Treatment Plan Review Patient participation: Yes Family/SO/Caregiver participation: No Additional Comments: Pt seen and discussed in team meeting. Pt reported feeling "not good." Pt reported feeling fearful and increased paranoia. Pt reported she does not wish to be left alone because "people are out to get me." Pt reported increased auditory and visual hallucinations. Pt reported that these "people" are trying to hurt her and that they have a gun. Pt reported hearing voices telling her that Binh is in danger and she needs to help him. Pt provided with reality testing and emotional support. Pt appears to be in distress. Pt's affect is flat. Attending psychiatrist reviewed pt's medication and pt is agreeable to long lasting injectable medication, Risperdal Consta. Psycho-education provided regarding Risperdal Consta by attending psychiatrist. Tx plan reviewed and discussed. Pt made aware that SW has been n contact with son, Scooter. Pt encouraged ad motivated to continue to attend activity groups. SW will continue to follow case. - Problem Auditory Hallucinations Date Initiated: 06/08/18 Time Initiated: 02:39 Progress toward outcomes: unchanged (Pt continues to experience auditory hallucinations telling her to take care of her son, Binh. Pt reported feeling fearful that something is going to happen to her son. Emotional support provided.) Visual Hallucinations Date Initiated: 06/08/18 Time Initiated: 02:40 Progress toward outcomes: unchanged (Pt reported seeing peopel with guns after her. Pt reported that these "people" are trying to hurt her. Pt reported that these "people" are unknown to her.) Unintentional Weight Loss Date Initiated: 06/08/18 Progress toward outcomes: improved (Pt's weight is improving since admission. Pt was admitted weighting 89lbs and is currently weighting 93lbs. Pt's appetite is improving.) - Discharge / Continuing Care Discharge to:: Home Behavioral Health Services: Outpatient therapy, Home health care, Other (Medication management) Health Needs: Follow up care/test, Doctor appointments, Nutritional, Medications/Rx, Educational, Recreational/Social
[2018-06-15] MEDS: VERAPAMIL 120 MG PO SCH (21:06)
[2018-06-16] MEDS: Venlafaxine 150 mg ER Cap PO SCH (08:16)
[2018-06-16] MEDS: Digoxin 125 mcg (0.125 mg) Tab PO SCH (08:17)
[2018-06-16] MEDS: Venlafaxine 75 mg ER Cap PO SCH (08:17)
[2018-06-16] MEDS: Multivitamin With Minerals Tab PO SCH (08:18)
--- NOTE | 2018-06-16 08:25 | PCM.PYCHPN ---
Psychiatric Progress Note - Psychiatric Progress Note Patient seen today, length of contact: Pt evaluated, case discussed w/ team, chart reviewed Patient Chief Complaint: "I'm hearing the voices again." Problems Identified/Issues Discussed: Patient received Risperdal Consta yesterday. She continues to be acutely anxious, fearful and paranoid. She continues to hear various AH, including the sound of gun shots. She is afraid to be alone due to acute paranoia. No current adverse effects to medications reported. No SI/HI. Medication Change: No Medical Record Reviewed: Yes Consults ordered or reviewed: Medicine consult Mental Status Examination - Cognitive Function Orientation: Person, Place, Situation, Time Memory: Intact Attention: WNL Concentration: WNL Association: WNL Fund of Knowledge: [facility] Decription of patient's judgement and insights: Fair I/J - Mood Mood: Depressed, Anxious - Affect Affect: Depressed - Formal Thought Process Formal Thought Process: Hallucinations, Paranoia Psychotic Thoughts and Behaviors: +AH - Suicidal Ideation Suicidal Ideation: No - Homicidal Ideation Homicidal Ideation: No Goal/Treatment Plan - Goal/Treatment Plan Need for Continued Stay: Remain at risks for inpatient hospitalization, Discharge may exacerbated symptoms Progress Toward Problem(s) and Goals/Treatment Plan: Schizoaffective Disorder -Individual and group therapy -Continue Trazodone and Effexor -Risperdal Consta 50 mg IM given on 06/15/18, continue PO Risperdal until next IM injection due -Medicine consult -Dietitian referral -Nicotine patch -Disposition planning
[2018-06-16] MEDS: VERAPAMIL 120 MG PO SCH (21:04)
[2018-06-17] MEDS: Digoxin 125 mcg (0.125 mg) Tab PO SCH (08:20)
--- NOTE | 2018-06-17 08:20 | PCM.PYCHPN ---
Psychiatric Progress Note - Psychiatric Progress Note Patient seen today, length of contact: Pt evaluated, case discussed w/ team, chart reviewed Patient Chief Complaint: "I'm hearing the voices again." Problems Identified/Issues Discussed: Patient continues to be paranoid, anxious, w/ acute AH telling her that her life is in danger. She is afraid to be alone due to acute paranoia. She continues to have sleep/appetite disturbances. No current adverse effects to medications reported. No SI/HI. Medication Change: Yes (Increase Trazodone) Medical Record Reviewed: Yes Consults ordered or reviewed: Medicine consult Mental Status Examination - Cognitive Function Orientation: Person, Place, Situation, Time Memory: Intact Attention: WNL Concentration: WNL Association: WNL Fund of Knowledge: [facility] Decription of patient's judgement and insights: Fair I/J - Mood Mood: Depressed, Anxious - Affect Affect: Depressed - Formal Thought Process Formal Thought Process: Hallucinations, Paranoia Psychotic Thoughts and Behaviors: +AH - Suicidal Ideation Suicidal Ideation: No - Homicidal Ideation Homicidal Ideation: No Goal/Treatment Plan - Goal/Treatment Plan Need for Continued Stay: Remain at risks for inpatient hospitalization, Discharge may exacerbated symptoms Progress Toward Problem(s) and Goals/Treatment Plan: Schizoaffective Disorder -Individual and group therapy -Continue Effexor -Increase Trazodone -Risperdal Consta 50 mg IM given on 06/15/18, continue PO Risperdal until next IM injection due -Medicine consult -Dietitian referral -Nicotine patch -Disposition planning Estimated Date of D/C: 06/22/18
[2018-06-17] MEDS: Venlafaxine 150 mg ER Cap PO SCH (08:21)
[2018-06-17] MEDS: Venlafaxine 75 mg ER Cap PO SCH (08:24)
[2018-06-17] MEDS: Multivitamin With Minerals Tab PO SCH (08:27)
[2018-06-17 09:53] LABS: BASO # 0.1 K/uL (0.0-0.2); BASO % 0.7 % (0.0-2.0); EOS # 0.1 K/uL (0.0-0.7); EOS % 0.8 % (0.0-4.0); HEMOGLOBIN 13.1 g/dL (12.0-16.0); LYMPH # 1.9 K/uL (1.0-4.3); LYMPH % 23.1 % (20.0-40.0); MEAN CELL VOLUME 101.7 fl (81.0-99.0); MEAN CORPUSCULAR HEMOGLOBIN 34.1 pg (27.0-31.0); MEAN CORPUSCULAR HGB CONC 33.5 g/dL (33.0-37.0); MEAN PLATELET VOLUME 8.1 fl (7.2-11.7); MONO # 0.6 K/uL (0.0-0.8); MONO % 7.1 % (0.0-10.0); NEUT # 5.7 K/uL (1.8-7.0); NEUT % 68.3 % (50.0-75.0); NRBC % 0.1 % (0.0-0.0); RBC 3.84 Mil/uL (3.80-5.20); RED CELL DISTRIBUTION WIDTH 13.8 % (11.5-14.5); WHITE BLOOD COUNT 8.4 K/uL (4.8-10.8)
[2018-06-17 10:38] LABS: ALB/GLOB RATIO 1.5 (1.0-2.1); ALBUMIN 4.8 g/dL (3.5-5.0); ALT/SGPT 84 U/L (9-52); AST/SGOT 51 U/L (14-36); BLOOD UREA NITROGEN 16 mg/dl (7-17); GFR NON-AFRICAN AMERICAN > 60
[2018-06-17] MEDS: VERAPAMIL 120 MG PO SCH (21:15)
[2018-06-18 07:30] LABS: SQUAMOUS EPITHIAL 4 /hpf (0-5); URINE AMORPHOUS SEDIMENT RARE /ul (<OCC); URINE BACTERIA RARE (<OCC); URINE BILIRUBIN NEGATIVE (NEGATIVE); URINE BLOOD NEGATIVE (NEGATIVE); URINE CLARITY CLOUDY (Clear); URINE COLOR YELLOW (YELLOW); URINE GLUCOSE (UA) NEG (NEGATIVE); URINE HYALINE CAST 0-2 /hpf (0-2); URINE LEUKOCYTE ESTERASE NEG Leu/uL (Negative); URINE PROTEIN NEGATIVE (NEGATIVE); URINE UROBILINOGEN 0.2-1.0 mg/dL (0.2-1.0)
[2018-06-18] MEDS: Venlafaxine 75 mg ER Cap PO SCH (08:18)
[2018-06-18] MEDS: Multivitamin With Minerals Tab PO SCH (08:18)
[2018-06-18] MEDS: Digoxin 125 mcg (0.125 mg) Tab PO SCH (08:19)
[2018-06-18] MEDS: Venlafaxine 150 mg ER Cap PO SCH (08:21)
--- NOTE | 2018-06-18 09:37 | PCM.PYCHPN ---
Psychiatric Progress Note - Psychiatric Progress Note Patient seen today, length of contact: Pt evaluated, case discussed w/ team, chart reviewed Patient Chief Complaint: pt has remained very paranoid and internally preoccupied but less anxious and less agitated. Medication Change: Yes (Increase Trazodone) Medical Record Reviewed: Yes Mental Status Examination - Cognitive Function Orientation: Person, Place, Situation, Time Memory: Intact Attention: WNL Concentration: WNL Association: WNL Fund of Knowledge: WNL - Mood Mood: Depressed, Anxious - Affect Affect: Depressed - Formal Thought Process Formal Thought Process: Hallucinations, Paranoia - Suicidal Ideation Suicidal Ideation: No - Homicidal Ideation Homicidal Ideation: No Goal/Treatment Plan - Goal/Treatment Plan Need for Continued Stay: Remain at risks for inpatient hospitalization, Discharge may exacerbated symptoms Progress Toward Problem(s) and Goals/Treatment Plan: will continue to stabilize pt with meds and therapy . disposition as per dr singh Estimated Date of D/C: 06/22/18
[2018-06-18] MEDS: Verapamil 120 mg ER Tab PO SCH (21:04)
[2018-06-19] MEDS: Venlafaxine 150 mg ER Cap PO SCH (08:06)
[2018-06-19] MEDS: Digoxin 125 mcg (0.125 mg) Tab PO SCH (08:07)
[2018-06-19] MEDS: Multivitamin With Minerals Tab PO SCH (08:08)
[2018-06-19] MEDS: Venlafaxine 75 mg ER Cap PO SCH (08:10)
--- NOTE | 2018-06-19 14:54 | PCM.PYCHPN ---
Psychiatric Progress Note - Psychiatric Progress Note Patient seen today, length of contact: Pt evaluated, case discussed w/ team, chart reviewed Patient Chief Complaint: pt has remained without much change in her behavior and has remained very paranoid and internally preoccupied but less anxious and less agitated. Medication Change: Yes (Increase Trazodone) Medical Record Reviewed: Yes Mental Status Examination - Cognitive Function Orientation: Person, Place, Situation, Time Memory: Intact Attention: WNL Concentration: WNL Association: WNL Fund of Knowledge: WNL - Mood Mood: Depressed, Anxious - Affect Affect: Depressed - Formal Thought Process Formal Thought Process: Hallucinations, Paranoia - Suicidal Ideation Suicidal Ideation: No - Homicidal Ideation Homicidal Ideation: No Goal/Treatment Plan - Goal/Treatment Plan Need for Continued Stay: Remain at risks for inpatient hospitalization, Discharge may exacerbated symptoms Progress Toward Problem(s) and Goals/Treatment Plan: will continue to stabilize pt with meds and therapy . disposition as per dr singh Estimated Date of D/C: 06/22/18
[2018-06-19] MEDS: Verapamil 120 mg ER Tab PO SCH (21:02)
[2018-06-20] MEDS: Digoxin 125 mcg (0.125 mg) Tab PO SCH (08:21)
[2018-06-20] MEDS: Venlafaxine 150 mg ER Cap PO SCH (08:22)
[2018-06-20] MEDS: Venlafaxine 75 mg ER Cap PO SCH (08:23)
[2018-06-20] MEDS: Multivitamin With Minerals Tab PO SCH (08:25)
--- NOTE | 2018-06-20 09:53 | PCM.PYCHPN ---
Psychiatric Progress Note - Psychiatric Progress Note Patient seen today, length of contact: Pt evaluated, case discussed w/ team, chart reviewed Patient Chief Complaint: AH/paranoia Problems Identified/Issues Discussed: Patient is paranoid w/ intermittent AH, but seems to be improving, as she is less afraid to be alone and less anxious. She reports that she continues to have poor appetite and we discussed the importance of proper nutrition and that she will get more Ensure supplements. No current adverse effects to medications reported. No SI/HI. Medication Change: No Medical Record Reviewed: Yes Consults ordered or reviewed: Medicine consult Mental Status Examination - Cognitive Function Orientation: Person, Place, Situation, Time Memory: Intact Attention: WNL Concentration: WNL Association: WNL Fund of Knowledge: [facility] Decription of patient's judgement and insights: Improving I/J - Mood Mood: Depressed, Anxious - Affect Affect: Depressed - Formal Thought Process Formal Thought Process: Hallucinations, Paranoia Psychotic Thoughts and Behaviors: +AH/ +Paranoia - Suicidal Ideation Suicidal Ideation: No - Homicidal Ideation Homicidal Ideation: No Goal/Treatment Plan - Goal/Treatment Plan Need for Continued Stay: Remain at risks for inpatient hospitalization, Discharge may exacerbated symptoms Progress Toward Problem(s) and Goals/Treatment Plan: Schizoaffective Disorder -Individual and group therapy -Continue Effexor -Continue Trazodone -Risperdal Consta 50 mg IM given on 06/15/18, continue PO Risperdal until next IM injection due -Medicine consult -Dietitian referral -Nicotine patch -Disposition planning Estimated Date of D/C: 06/24/18
[2018-06-20] MEDS: Verapamil 120 mg ER Tab PO SCH (21:05)
--- NOTE | 2018-06-21 08:23 | PCM.PYCHPN ---
Psychiatric Progress Note - Psychiatric Progress Note Patient seen today, length of contact: Pt evaluated, case discussed w/ team, chart reviewed Patient Chief Complaint: Paranoia Problems Identified/Issues Discussed: Patient reports that the AH are less frequent, but she continues to be paranoid that someone is going to come and shoot her. She does not know who or why. She continues to be anxious due to this paranoia, but is able to tolerate being alone. No current adverse effects to medications reported. No SI/HI. Medication Change: No Medical Record Reviewed: Yes Consults ordered or reviewed: Medicine consult Mental Status Examination - Cognitive Function Orientation: Person, Place, Situation, Time Memory: Intact Attention: WNL Concentration: WNL Association: WNL Fund of Knowledge: [facility] Decription of patient's judgement and insights: Improving I/J - Mood Mood: Depressed, Anxious - Affect Affect: Depressed - Formal Thought Process Formal Thought Process: Hallucinations, Paranoia Psychotic Thoughts and Behaviors: +AH/ +Paranoia - Suicidal Ideation Suicidal Ideation: No - Homicidal Ideation Homicidal Ideation: No Goal/Treatment Plan - Goal/Treatment Plan Need for Continued Stay: Remain at risks for inpatient hospitalization, Discharge may exacerbated symptoms Progress Toward Problem(s) and Goals/Treatment Plan: Schizoaffective Disorder -Individual and group therapy -Continue Effexor -Continue Trazodone -Risperdal Consta 50 mg IM given on 06/15/18, continue PO Risperdal until next IM injection due -Medicine consult -Dietitian referral -Nicotine patch -Disposition planning Estimated Date of D/C: 06/24/18
[2018-06-21] MEDS: Multivitamin With Minerals Tab PO SCH (09:03)
[2018-06-21] MEDS: Venlafaxine 150 mg ER Cap PO SCH (09:04)
[2018-06-21] MEDS: Digoxin 125 mcg (0.125 mg) Tab PO SCH (09:04)
[2018-06-21] MEDS: Venlafaxine 75 mg ER Cap PO SCH (09:05)
[2018-06-21] MEDS: Verapamil 120 mg ER Tab PO SCH (21:01)
[2018-06-22] MEDS: Digoxin 125 mcg (0.125 mg) Tab PO SCH (08:11)
[2018-06-22] MEDS: Venlafaxine 75 mg ER Cap PO SCH (08:13)
[2018-06-22] MEDS: Venlafaxine 150 mg ER Cap PO SCH (08:13)
--- NOTE | 2018-06-22 08:54 | PCM.PYCHPN ---
Psychiatric Progress Note - Psychiatric Progress Note Patient seen today, length of contact: Pt evaluated, case discussed w/ team, chart reviewed Patient Chief Complaint: Paranoia Problems Identified/Issues Discussed: Patient reports that AH are less frequent than before. She continues to be paranoid and worried that someone may shoot her, but she is anxious and more engaged in the community. No current adverse effects to medications reported. No SI/HI. Medication Change: No Medical Record Reviewed: Yes Consults ordered or reviewed: Medicine consult Mental Status Examination - Cognitive Function Orientation: Person, Place, Situation, Time Memory: Intact Attention: WNL Concentration: WNL Association: WNL Fund of Knowledge: [facility] Decription of patient's judgement and insights: Improving I/J - Mood Mood: Depressed, Anxious - Affect Affect: Depressed - Formal Thought Process Formal Thought Process: Hallucinations, Paranoia Psychotic Thoughts and Behaviors: +AH/ +Paranoia - Suicidal Ideation Suicidal Ideation: No - Homicidal Ideation Homicidal Ideation: No Goal/Treatment Plan - Goal/Treatment Plan Need for Continued Stay: Remain at risks for inpatient hospitalization, Discharge may exacerbated symptoms Progress Toward Problem(s) and Goals/Treatment Plan: Schizoaffective Disorder -Individual and group therapy -Continue Effexor -Continue Trazodone -Risperdal Consta 50 mg IM given on 06/15/18, continue PO Risperdal until next IM injection due -Medicine consult -Dietitian referral -Nicotine patch -Disposition planning Estimated Date of D/C: 06/24/18
[2018-06-22] MEDS: Multivitamin With Minerals Tab PO SCH (11:42)
--- NOTE | 2018-06-22 12:56 | PCM.BM ---
Treatment Plan Problems - Problems identified on initial assessmt Auditory Hallucinations Date Initiated: 06/08/18 Time Initiated: 02:39 Assessment reference: NA Status: Active Visual Hallucinations Date Initiated: 06/08/18 Time Initiated: 02:40 Assessment reference: NA Status: Active Treatment assets and liabiliti Patient Assests: adapts well, cooperative, ADL independent, good support system, negotiates basic needs, good past tx response Patient Liabilities: medical problems - Milieu Protocol Maintain good personal hygiene: daily Encourage regular showers, daily Remind patient to perform daily oral care, daily Assist patient to perform ADL's Conduct patient checks and document Observation sheet: Q15 minutes Maintain personal safety: every shift Educate patient to report safety concerns to staff, every shift Monitor environment for contraband/sharps Medication safety: Monitor for expected outcome, potential side effects: every s hift, Assess barriers to learning: every shift, Assess readiness for medication education: every shift Milieu Narrative: Schizoaffective Disorder -Individual and group therapy -Continue Effexor -Continue Trazodone -Risperdal Consta 50 mg IM given on 06/15/18, continue PO Risperdal until next IM injection due -Medicine consult -Dietitian referral -Nicotine patch -Disposition planning Family Contact Family involvement: Family/SO is involved Family contact: Patient agrees to contact, Family has been contacted by patient, Telephone contact initiated by staff Family contact name: Binh - son & Kristyn - sister Family contacted how many times per week?: 2 Family contact comment: [phone] - Outside Agency [facility] involvment: Information-sharing Agency contact name: Dr. Gisela MD Agency contact number: [phone] - Goals for Treatment Patient goals for treatment: Pt will imporve overall mood. Pt will improve feeling less depressed and anxious. Pt will develop strategies to reduce sumptoms and improve coping skills. Pt will be comply with prescribed medications. Pt will attend clinical and activity groups. Pt will improve sleep pattern. Pt will report less auditory hallucinations. Discharge/Continuing Care - Education Needs Education Needs: Family Medication, Family Diagnosis/Disease Process, Family Coping Skills, Family Community resources, Family Activities of Daily Living, Family Nutrition, Family Health Practices/Safety, Family Personal Hygiene/Grooming, Family Aftercare Safety Plan, Patient Medication, Patient Diagnosis/Disease Process, Patient Coping Skills, Patient Community resources, Patient Activities of Daily Living, Patient Nutrition, Patient Health Practices/Safety, Patient Personal Hygiene/Grooming, Patient Aftercare Safety Plan - Discharge Discharge Criteria: Tolerates medication w/o severe side effects, Normal sleep pattern, Ability to care for self, Reduction of target symptoms, Other (Decreased auditory hallucinations) Discharge to:: Home - Additional Comments 06/08/18 13:11 Pt seen and discussed in team meeting. Reason for hospitalization reviewed and discussed. Pt reported worsening auditory hallucinations in the context of medication adjustment. Pt reported hearing voices telling her to "take care of my son" and "watch him." Pt reported she last experienced auditory hallucinations this morning. Pt reported the voices were telling her "stay in your room." Pt was observed to be at the door entrance of her bedroom most of the morning. Pt reported feeling depressed. Pt reported that her mother in February 2018. Pt denied SI and HI. Pt denied VH. Pt denied any paranoia. Pt reported poor sleep and appetite. Pt reported weight loss, but unable to state how much. Pt appears to be thin and under weight. Pt's social and medical issues reviewed and discussed. Pt's medications reviewed and discussed. Pt reported following up with Dr. Gisela MD at [facility]. Tx plan reviewed and discussed. Pt signed consent form for [facility] and sister, Kristyn ([phone]). Sw to continue to follow case. - Treatment Team Participation Patient/Family/SO Statement: Schizoaffective Disorder -Individual and group therapy -Continue Effexor -Continue Trazodone -Risperdal Consta 50 mg IM given on 06/15/18, continue PO Risperdal until next IM injection due -Medicine consult -Dietitian referral -Nicotine patch -Disposition planning Discussed with Family/SO: No Was Patient/Family/SO present at Treatment Team Meeting: Yes Treatment Plan Review Patient participation: Yes Family/SO/Caregiver participation: No Additional Comments: Pt seen and discussed in team meeting. Pt's progress and bx on the unit reviewed. Pt reported feeling "not too good." Pt reported feeling "very anxi ous." Pt reported auditory hallucinations, last experienced this morning. Pt reported hearing shot guns and a voice telling her "becareful someone is here to get you." Pt appears to be less fearful and frightened. Pt also reported less frequent hallucinations. Pt is more visible on the unit and less fearful to be alone. Pt observed to be socializing with peers on the unit. Pt reported that she is unsure if she is ready to return home or not. Pt reported her sleep is good. Appetite remains poor; however, pt has gained approximately 4lbs since admission. Pt's medications reviewed with attending psychiatrist. Tx plan reviewed. Pt continues to verbalize agreement to tx plan and remaining hospitalized. Sw to continue to follow case. Pt reported having no questions or concerns for the team. - Problem Auditory Hallucinations Date Initiated: 06/08/18 Time Initiated: 02:39 Progress toward outcomes: unchanged (Pt reported less frequent hallucinations. Pt reported hearing shot guns and a voice telling her to becareful that someone is after her.) Visual Hallucinations Date Initiated: 06/08/18 Time Initiated: 02:40 Progress toward outcomes: resolved (Pt denied visual hallucinations.) Unintentional Weight Loss Date Initiated: 06/08/18 Progress toward outcomes: improved (Pt reported her appetite is improving. Pt ganed weight since admisison.) - Discharge / Continuing Care Discharge to:: Home, With Family Behavioral Health Services: Partial hospital, Home health care, Other (M edication Management) Health Needs: Follow up care/test, Doctor appointments, Nutritional, Medications/Rx, Educational, Recreational/Social
[2018-06-22] MEDS: Verapamil 120 mg ER Tab PO SCH (21:02)
[2018-06-23] MEDS: Multivitamin With Minerals Tab PO SCH (08:16)
[2018-06-23] MEDS: Venlafaxine 75 mg ER Cap PO SCH (08:16)
[2018-06-23] MEDS: Venlafaxine 150 mg ER Cap PO SCH (08:16)
[2018-06-23] MEDS: Digoxin 125 mcg (0.125 mg) Tab PO SCH (08:17)
--- NOTE | 2018-06-23 10:35 | PCM.PYCHPN ---
Psychiatric Progress Note - Psychiatric Progress Note Patient seen today, length of contact: Pt evaluated, case discussed w/ team, chart reviewed Patient Chief Complaint: Paranoia Problems Identified/Issues Discussed: Hand Expansion Envelope Maker spoke to patient's son, Scooter, who states that he thinks his mother is not at baseline as she continues to be paranoid. Patient continues to report feeling anxious due to acute paranoia that someone wants to shoot/kill her. She continues to hear intermittent AH. No current adverse effects to medications reported. No SI/HI. Medication Change: No Medical Record Reviewed: Yes Consults ordered or reviewed: Medicine consult Mental Status Examination - Cognitive Function Orientation: Person, Place, Situation, Time Memory: Intact Attention: WNL Concentration: WNL Association: WNL Fund of Knowledge: [facility] Decription of patient's judgement and insights: Improving I/J - Mood Mood: Depressed, Anxious - Affect Affect: Depressed - Formal Thought Process Formal Thought Process: Hallucinations, Paranoia Psychotic Thoughts and Behaviors: +AH/ +Paranoia - Suicidal Ideation Suicidal Ideation: No - Homicidal Ideation Homicidal Ideation: No Goal/Treatment Plan - Goal/Treatment Plan Need for Continued Stay: Remain at risks for inpatient hospitalization, Discharge may exacerbated symptoms Progress Toward Problem(s) and Goals/Treatment Plan: Schizoaffective Disorder -Individual and group therapy -Continue Effexor -Continue Trazodone -Risperdal Consta 50 mg IM given on 06/15/18, continue PO Risperdal until next IM injection due -Medicine consult -Dietitian referral -Nicotine patch -Disposition planning Estimated Date of D/C: 06/27/18
[2018-06-23] MEDS: Verapamil 120 mg ER Tab PO SCH (21:05)
[2018-06-24] MEDS: Digoxin 125 mcg (0.125 mg) Tab PO SCH (08:27)
[2018-06-24] MEDS: Venlafaxine 75 mg ER Cap PO SCH (08:28)
[2018-06-24] MEDS: Venlafaxine 150 mg ER Cap PO SCH (08:28)
[2018-06-24] MEDS: Multivitamin With Minerals Tab PO SCH (08:29)
--- NOTE | 2018-06-24 10:56 | PCM.PYCHPN ---
Psychiatric Progress Note - Psychiatric Progress Note Patient seen today, length of contact: Pt evaluated, case discussed w/ team, chart reviewed Patient Chief Complaint: Paranoia Problems Identified/Issues Discussed: Patient reports that she feels less anxious and less paranoid. She denies acute worries that someone wants to shoot her. She continues to hear AH, but reports they are less frequent. She is not agreeable to further medication changes. No current adverse effects to medications reported. No SI/HI. Medication Change: No Medical Record Reviewed: Yes Consults ordered or reviewed: Medicine consult Mental Status Examination - Cognitive Function Orientation: Person, Place, Situation, Time Memory: Intact Attention: WNL Concentration: WNL Association: WNL Fund of Knowledge: WN Decription of patient's judgement and insights: Improving I/J - Mood Mood: Depressed, Anxious - Affect Affect: Depressed - Formal Thought Process Formal Thought Process: Hallucinations, Paranoia Psychotic Thoughts and Behaviors: +AH/ +Paranoia - Suicidal Ideation Suicidal Ideation: No - Homicidal Ideation Homicidal Ideation: No Goal/Treatment Plan - Goal/Treatment Plan Need for Continued Stay: Remain at risks for inpatient hospitalization, Discharge may exacerbated symptoms Progress Toward Problem(s) and Goals/Treatment Plan: Schizoaffective Disorder -Individual and group therapy -Continue Effexor -Continue Trazodone -Risperdal Consta 50 mg IM given on 06/15/18, continue PO Risperdal until next IM injection due -Medicine consult -Dietitian referral -Nicotine patch -Disposition planning Estimated Date of D/C: 06/27/18
[2018-06-24] MEDS: Verapamil 120 mg ER Tab PO SCH (21:11)
[2018-06-25] MEDS: Venlafaxine 150 mg ER Cap PO SCH (09:06)
[2018-06-25] MEDS: Multivitamin With Minerals Tab PO SCH (09:06)
[2018-06-25] MEDS: Digoxin 125 mcg (0.125 mg) Tab PO SCH (09:07)
[2018-06-25] MEDS: Venlafaxine 75 mg ER Cap PO SCH (09:07)
--- NOTE | 2018-06-25 09:26 | PCM.PYCHPN ---
Psychiatric Progress Note - Psychiatric Progress Note Patient seen today, length of contact: Pt evaluated, case discussed w/ team, chart reviewed Patient Chief Complaint: Paranoia Problems Identified/Issues Discussed: Patient reports that her mood is improving, she is less paranoid, less anxious and reports that the AH are not frequent anymore. She has brighter affect and is more appropriately engaged with others. No current adverse effects to medications reported. No SI/HI. Medication Change: No Medical Record Reviewed: Yes Consults ordered or reviewed: Medicine consult Mental Status Examination - Cognitive Function Orientation: Person, Place, Situation, Time Memory: Intact Attention: WNL Concentration: WNL Association: [facility] Fund of Knowledge: [facility] Decription of patient's judgement and insights: Fair I/J - Mood Mood: Anxious - Affect Affect: Broad - Speech Speech: Soft - Formal Thought Process Formal Thought Process: Hallucinations, Paranoia Psychotic Thoughts and Behaviors: Less AH, less paranoia - Suicidal Ideation Suicidal Ideation: No - Homicidal Ideation Homicidal Ideation: No Goal/Treatment Plan - Goal/Treatment Plan Need for Continued Stay: Discharge may exacerbated symptoms Progress Toward Problem(s) and Goals/Treatment Plan: Schizoaffective Disorder -Individual and group therapy -Continue Effexor -Continue Trazodone -Risperdal Consta 50 mg IM given on 06/15/18, continue PO Risperdal until next IM injection due -Medicine consult -Dietitian referral -Nicotine patch -Disposition planning Estimated Date of D/C: 06/27/18
[2018-06-25 16:36] VITALS: TEMP 99
--- NOTE | 2018-06-26 09:11 | PCM.PYCHPN ---
Psychiatric Progress Note - Psychiatric Progress Note Patient seen today, length of contact: Pt evaluated, case discussed w/ team, chart reviewed Patient Chief Complaint: "I'm feeling better." Problems Identified/Issues Discussed: Patient reports that she is improving clinically and she is goal oriented towards discharge. She denies acute paranoia and denies acute AH. She is more engaged in the community. Fish Drier reviewed patient's medications and treatment plan with the patient. No SI/HI. Medication Change: No Medical Record Reviewed: Yes Consults ordered or reviewed: Medicine consult Mental Status Examination - Cognitive Function Orientation: Person, Place, Situation, Time Memory: Intact Attention: WNL Concentration: WNL Association: WNL Fund of Knowledge: WN Decription of patient's judgement and insights: Fair I/J - Mood Mood: Anxious - Affect Affect: Broad - Speech Speech: Appropriate - Formal Thought Process Formal Thought Process: No Impairment Psychotic Thoughts and Behaviors: Denies acute AH/paranoia/delusions - Suicidal Ideation Suicidal Ideation: No - Homicidal Ideation Homicidal Ideation: No Goal/Treatment Plan - Goal/Treatment Plan Need for Continued Stay: Discharge may exacerbated symptoms Progress Toward Problem(s) and Goals/Treatment Plan: Schizoaffective Disorder; patient is improving clinically; will likely discharge tomorrow -Individual and group therapy -Continue Effexor -Continue Trazodone -Risperdal Consta 50 mg IM given on 06/15/18, continue PO Risperdal until next IM injection due -Medicine consult -Dietitian referral -Nicotine patch -Disposition planning Estimated Date of D/C: 06/27/18
[2018-06-26] MEDS: Venlafaxine 150 mg ER Cap PO SCH (09:46)
[2018-06-26] MEDS: Multivitamin With Minerals Tab PO SCH (09:46)
[2018-06-26] MEDS: Venlafaxine 75 mg ER Cap PO SCH (09:47)
[2018-06-26] MEDS: Digoxin 125 mcg (0.125 mg) Tab PO SCH (09:48)
[2018-06-26 16:02] VITALS: RESP 18
[2018-06-27 05:49] VITALS: BP 101/65; PULSE 69
[2018-06-27] MEDS: Venlafaxine 75 mg ER Cap PO SCH (10:12)
[2018-06-27] MEDS: Digoxin 125 mcg (0.125 mg) Tab PO SCH (10:13)
[2018-06-27] MEDS: Venlafaxine 150 mg ER Cap PO SCH (10:13)
[2018-06-27] MEDS: Multivitamin With Minerals Tab PO SCH (10:14)
[2018-06-27 10:15] VITALS: PULSE 81
--- NOTE | 2018-06-27 11:05 | PCM.PYCHDC ---
Mental Status Examination - Mental Status Examination Orientation: Person, Place, Situation, Time Memory: Intact Mood: Neutral Affect: Broad Speech: Appropriate Attention: WNL Concentration: WNL Formal Thought Process: No Impairment Description of patient's judgement and insight: Fair I/J Psychotic Thoughts and Behaviors: No AH/VH/paranoia/delusions Suicidal Ideation: No Current Homicidal Ideation?: No Discharge Summary - Discharge Note Reason for Hospitalization: HPI: 67 yo female w/ h/o schizoaffective disorder, presents w/ worsening depression, increased auditory hallucinations, CAH telling her simple commands such as "stay in bed," poor appetite and weight loss, and poor sleep. She denies acute VH/paranoia/SI/HI. PPHx: History of multiple past psychiatric admissions; last hospitalized in [facility] in April 2017; current outpatient treatment with Dr. Higgins PMHx: CAD, Seizure Disorder , Osteoporosis ALL: NKDA SHx: Lives w/ her son, no drugs/etoh; smokes 1ppd; completed 11th grade; no legal history, umemployed, on SSI Consultations:: List each consultation separately and include: 1. Reason for request. 2. Findings. 3. Follow-up Consultations: Medicine consult Summary of Hospital Course include:: 1. Description of specific treatment plan utilized for patients during their course of treatmen. 2. Summarize the time- course for resolution of acute symptoms and/or regressed behaviors. 3. Describe issues identified and worked on during hospitalization. 4. Describe medication utilized. 5. Describe medical problems identified and treated. 6. Reassessment of suicide risk Summary of Hospital Course: Patient was admitted to the psychiatry unit. Individual and group therapy were provided. Patient was stabilized on Effexor XR 225 mg PO Daily, Trazodone 200 mg PO HS, Risperdal Consta 50 mg IM [id number] (next dose to be given on 06/30/18), patient will finish PO Risperdal when she gets her next injection. She denies acute depression/anxiety/AH/VH/paranoia/delusions. She is psychiatrically stable for discharge at this time. Case discussed w/ patient's primary psychiatrist, Dr. Higgins, and with her son, Scooter. - Diagnosis (1) Schizoaffective disorder Current Visit: Yes Status: Acute - Final Diagnosis (DSM 5) Condition upon Discharge: STABLE DSM 5: Schizoaffective Disorder Disposition: HOME/ ROUTINE Follow-up Treatment Plan: Schizoaffective Disorder; patient is psychiatrically stable for discharge with continued outpatient follow-up. Prescriptions/Medication Reconciliation: risperiDONE [RisperDAL] 2 mg PO ASDIR #10 tab risperiDONE [RISPERDAL Consta Inj] 50 mg IM ONCE #1 inj traZODone [Desyrel] 200 mg PO HS #60 tab Venlafaxine [Effexor XR] 225 mg PO DAILY #90 cer - Smoking Cessation Smoking Cessation Medication prescribed: Yes Reason for not providing: Provided during admission; patient declined outpatient prescription - Antipsychotic Medications Pt discharged on 2 or more routine antipsychotic medications: No
[2018-06-28] MEDS ORDERED: Venlafaxine 75 mg ER Cap PO SCH (09:00)
== END 2018-06-27 14:30 | disposition home or self-care (01) | DRG 881 ==
LOC: H.ER 01:45 → H.STEP 02:00
PROVIDERS: ADMIT Psychiatry & Neurology Psychiatry; ATTEND Psychiatry & Neurology Psychiatry
PROC: GZHZZZZ Group Psychotherapy (ICD-10-PCS; principal; 2018-06-08)
PROC: GZ51ZZZ Individual Psychotherapy, Behavioral (ICD-10-PCS; 2018-06-08)
PROC: GZ56ZZZ Individual Psychotherapy, Supportive (ICD-10-PCS; 2018-06-08)
DX: F32.9 Major depressive disorder, single episode, unspecified (principal); G40.909 Epilepsy, unspecified, not intractable, without status epilepticus; F25.9 Schizoaffective disorder, unspecified; I10 Essential (primary) hypertension; I25.10 Atherosclerotic heart disease of native coronary artery without angina pectoris; I48.91 Unspecified atrial fibrillation; J44.9 Chronic obstructive pulmonary disease, unspecified; M81.0 Age-related osteoporosis without current pathological fracture; F41.9 Anxiety disorder, unspecified; H26.9 Unspecified cataract; Z79.899 Other long term (current) drug therapy; R63.4 Abnormal weight loss; F17.210 Nicotine dependence, cigarettes, uncomplicated